=== PATIENT | female | born 1950 | race Caucasian/White ===

== ENCOUNTER → 2017-01-27 | Outpatient (CLI) | payer MEDICARE ==
--- NOTE | 2017-01-27 09:47 | REPMRS ---
Patient History The patient states she had a clinical breast exam in December 2016.Patient is postmenopausal. Family history of unknown cancer in brother at age 24. Digital Mammo Screening Bilat: January 27, 2017 - Exam #: [id number] Bilateral CC and MLO view(s) were taken. Technologist: Fernanda Covington, Technologist Prior study comparison: December 26, 2015, bilateral digital mammo screening bilat performed at [facility]. June 13, 2014, bilateral digital mammo screening bilat performed at [facility]. FINDINGS: The breast tissue is extremely dense which could obscure a lesion on mammography. There is no evidence of cancer on this mammogram. No significant changes when compared with prior studies. ASSESSMENT: BI-RADS/ACR category 2 mammogram. Benign finding(s). Recommendation Routine screening mammogram of both breasts in 1 year (for women over age 40). This mammogram was interpreted with the aid of an FDA-approved computer-aided dectection system. Electronically Signed By: Heath Hickey MD 01/27/17 0947
== END ==
LOC: M RAD 08:15
PROVIDERS: ATTEND Nurse Practitioner Women's Health
DX: Z12.31 Encounter for screening mammogram for malignant neoplasm of breast (principal)

== ENCOUNTER → 2018-01-30 | Outpatient (CLI) | payer MEDICARE | LOC: M RAD 10:08 | DX: Z12.31 Encounter for screening mammogram for malignant neoplasm of breast (principal) | CPT/HCPCS: 77067 ==

== ENCOUNTER → 2018-06-07 | Outpatient (REF) | payer MEDICARE ==
[2018-06-13 00:07] LABS: GAD-65 AUTOANTIBODY <5.0 U/mL (0.0-5.0)
== END ==
LOC: M LAB REF 15:45
DX: E11.319 Type 2 diabetes mellitus with unspecified diabetic retinopathy without macular edema (principal)
CPT/HCPCS: 83519

== ENCOUNTER → 2019-02-05 | Outpatient (CLI) | payer MEDICARE ==
--- NOTE | 2019-02-05 09:36 | REPMRS ---
Patient History The patient states she had a clinical breast exam in January 2019.Family history of unknown cancer at age 24 in brother. 3D TOMOSYNTHESIS WAS PERFORMED. The Elias Ochoa lifetime risk for breast cancer is 5.2%. Digital Mammo Screening Bilat: February 05, 2019 - Exam #: [id number] Bilateral CC and MLO view(s) were taken. Technologist: Fernanda Covington, Technologist Prior study comparison: January 30, 2018, bilateral digital mammo screening bilat performed at [facility]. January 27, 2017, bilateral digital mammo screening bilat performed at [facility]. FINDINGS: The breast tissue is heterogeneously dense. This may lower the sensitivity of mammography. There has been no change in the appearance of the mammogram from the prior studies. There is a moderate amount of residual fibroglandular tissue which is fairly symmetric. There is no interval development of dominant mass, areas of architectural distortion, or clustered microcalcification typical of malignancy. Assessment: BI-RADS/ACR category 1 mammogram. Negative Mammogram. Recommendation Routine screening mammogram in 1 year (for women over age 40). This mammogram was interpreted with the aid of an FDA-approved computer-aided dectection system. Electronically Signed By: Heath Hickey MD 02/05/19 0961
== END ==
LOC: M RAD 08:05
PROVIDERS: ATTEND Nurse Practitioner Women's Health
DX: Z12.31 Encounter for screening mammogram for malignant neoplasm of breast (principal)

== ENCOUNTER → 2020-02-13 | Outpatient (CLI) | payer MEDICARE ==
--- NOTE | 2020-02-13 09:56 | REPMRS ---
Patient History The patient states she has not had a clinical breast exam in over a year. Patient is postmenopausal. Family history of unknown cancer at age 24 in brother. 3D TOMOSYNTHESIS WAS PERFORMED. [facility] lifetime risk for breast cancer is 4.9%. [place] [facility] Digital Woman Screen Mammo: February 13, 2020 - Exam #: [id number] Bilateral CC and MLO view(s) were taken. Technologist: Oksana Martinez, Technologist Prior study comparison: February 05, 2019, bilateral digital mammo screening bilat, performed at [facility]. January 30, 2018, bilateral digital mammo screening bilat, performed at [facility]. FINDINGS: The breast tissue is heterogeneously dense. This may lower the sensitivity of mammography. There has been no change in the appearance of the mammogram from the prior studies. There is a moderate amount of residual fibroglandular tissue which is fairly symmetric. There is no interval development of dominant mass, areas of architectural distortion, or clustered microcalcification typical of malignancy. Assessment: BI-RADS/ACR category 1 mammogram. Negative Mammogram. Recommendation Routine screening mammogram in 1 year (for women over age 40). This mammogram was interpreted with the aid of an FDA-approved computer-aided dectection system. Electronically Signed By: Heath Hickey MD 02/13/20 0933
== END ==
LOC: M WHC 07:32
PROVIDERS: ATTEND Physician Assistant Medical
DX: Z12.31 Encounter for screening mammogram for malignant neoplasm of breast (principal); Z78.0 Asymptomatic menopausal state; Z80.9 Family history of malignant neoplasm, unspecified

== ENCOUNTER → 2021-05-14 | Outpatient (REF) | payer MEDICARE ==
[~2021-05-14] MED LIST: AZEL0.055 NARES; INSULANT SC; LISI20TA35 PO; MELA10CA PO; NOVOINJ3 SC; PRAV40TA2 PO
[2021-05-14 21:01] LABS: H PYLORI QUALITATIVE IgG NEGATIVE (NEGATIVE)
== END ==
LOC: M LAB REF 16:34
PROVIDERS: ATTEND Nurse Practitioner Adult Health
DX: R10.9 Unspecified abdominal pain (principal)

== ENCOUNTER 2021-05-16 11:28 | Inpatient (IN) | payer MEDICARE ==
[~2021-05-16] VITALS: Ht 165.1 cm; Wt 68.5 kg
[2021-05-16] MEDS ORDERED: NS 1,000 ML IV ONE ×2 (12:30→15:05)
[2021-05-16] MEDS ORDERED: MORPHINE 2 MG/ML 1ML VIAL (J2270) IV PRN (12:30)
[2021-05-16] MEDS ORDERED: ONDANSETRON 4MG/2ML VIAL IV ONE (12:30)
--- NOTE | 2021-05-16 12:54 | REP ---
INDICATION: pancreatitis COMPARISON: None. TECHNIQUE: Portable AP view of the chest FINDINGS: The mediastinum and cardiac silhouette are within normal limits for portable technique. The lung teague are clear without acute consolidation, effusion, or pneumothorax. Skeletal structures are intact. IMPRESSION: No acute cardiopulmonary process appreciated. <Electronically signed by Chris Bai > 05/16/21 [id number]
[2021-05-16 13:09] LABS: BASO % 0.5 % (0.0-1.0); EOS # 0.5 10^3/uL (0.0-0.5); EOS % 6.6 % (0.0-3.0); HEMATOCRIT 33.9 % (36.0-47.0); HEMOGLOBIN 11.5 g/dl (12.0-15.5); LYMPH # 2.3 10^3/uL (1.5-5.0); MEAN CORPUSCULAR HEMOGLOBIN 30.7 pg (27.0-33.0); MEAN CORPUSCULAR HGB CONC 33.9 g/dl (32.0-36.5); MEAN CORPUSCULAR VOLUME 90.4 fl (80.0-96.0); MONO # 0.5 10^3/uL (0.0-0.8); MONO % 6.7 % (2.0-8.0); NEUTROPHILS # 4.5 10^3/uL (1.5-8.5); NEUTROPHILS % 56.9 % (36.0-66.0); PLATELET COUNT, AUTOMATED 310 10^3/uL (150-450); RED BLOOD COUNT 3.75 10^6/uL (4.00-5.40); WHITE BLOOD COUNT 7.9 10^3/uL (4.0-10.0)
[2021-05-16] MEDS ORDERED: INSULANT SC (13:13)
[2021-05-16] MEDS ORDERED: LISI20TA35 PO (13:13)
[2021-05-16] MEDS ORDERED: MELA10CA PO (13:13)
[2021-05-16] MEDS ORDERED: PRAV40TA2 PO (13:13)
[2021-05-16] MEDS ORDERED: NOVOINJ3 SC (13:13)
[2021-05-16] MEDS ORDERED: AZEL0.055 NARES (13:13)
[2021-05-16 13:22] LABS: INR 0.9; PROTHROMBIN TIME 12.5 SECONDS (12.7-14.5)
[2021-05-16 13:23] LABS: PARTIAL THROMBOPLASTIN TIME 26.3 SECONDS (25.9-37.0)
[2021-05-16 13:28] LABS: CHOLESTEROL LEVEL 154 MG/DL (<200); CHOLESTEROL RISK RATIO 2.444 (<5); CK-MB VALUE MASS 1.6 NG/ML (<3.6); CPK CREATINE PHOSPHOKINASE 105 U/L (26-192); HDL CHOLESTEROL 63 MG/DL (>40); LDL CHOLESTEROL 65 MG/DL (<100); MB/CK RELATIVE INDEX 1.52 (< OR =4); NON-HDL-C 91 MG/DL; TRIGLYCERIDES LEVEL 131 MG/DL (<150); TROPONIN I < 0.02 NG/ML (< 0.10)
[2021-05-16 13:33] LABS: RSV AMPLIFICATION NEGATIVE (NEGATIVE)
[2021-05-16 13:40] LABS: ALBUMIN 3.6 GM/DL (3.2-5.2); ALT/SGPT 23 U/L (12-78); BILIRUBIN,DIRECT < 0.1 MG/DL (0.0-0.2); BILIRUBIN,TOTAL 0.2 MG/DL (0.2-1.0); BLOOD UREA NITROGEN 16 MG/DL (7-18); CALCIUM LEVEL 8.9 MG/DL (8.8-10.2); CARBON DIOXIDE LEVEL 28 MEQ/L (21-32); CHLORIDE LEVEL 104 MEQ/L (98-107); CREATININE FOR GFR 0.92 MG/DL (0.55-1.30); GLOMERULAR FILTRATION RATE > 60.0 (>39); GLUCOSE, FASTING 259 MG/DL (70-100); LIPASE 11122 U/L (73-393); POTASSIUM SERUM 3.9 MEQ/L (3.5-5.1); SODIUM LEVEL 136 MEQ/L (136-145); TOTAL PROTEIN 7.4 GM/DL (6.4-8.2)
[2021-05-16] MEDS ORDERED: ISOVUE-370 76% 100ML VIAL As Ordered ONE (13:49)
--- NOTE | 2021-05-16 14:14 | REP ---
INDICATION: elevated lipase. COMPARISON: None TECHNIQUE: Axial contrast-enhanced images from the lung bases to the pubic symphysis using 100 cc Isovue 370 intravenous contrast material. Coronal and sagittal reformations obtained. This CT examination was performed using the following dose reduction techniques: Automated exposure control, adjustment of mA and/or kv according to the patient's size, and the use of iterative reconstruction technique. FINDINGS: Lung bases include 3 mm noncalcified nodules in the periphery of the visualized bilateral lower lobes. Liver, spleen, pancreas, gallbladder, bilateral adrenal glands and kidneys are normal. Specifically, no peripancreatic inflammatory stranding or fluid is identified. The enteric system including stomach, small, and large bowel appears normal. No evidence for obstruction or acute inflammatory process. Normal terminal ileum and cecum are identified in the right lower quadrant. Sigmoid diverticulosis noted without acute diverticulitis. Pelvis demonstrates normal bladder and evidence for prior hysterectomy. No ascites. No free air. No intraperitoneal or retroperitoneal adenopathy. Abdominal aorta and vasculature appear normal. Musculoskeletal structures are intact and without acute osseous abnormality. IMPRESSION: 1. No acute abdominopelvic pathology appreciated. 2. Nonacute findings as described above including diverticulosis. Normal appearance of the pancreas and peripancreatic fat planes. 3. Few scattered noncalcified nodules at the lung bases. Consider 12 month follow-up examination for high risk patients. <Electronically signed by Chris Bai > 05/16/21 [id number]
[2021-05-16 14:30] LABS: AMYLASE 473 U/L (25-115)
--- NOTE | 2021-05-16 14:40 | REP ---
INDICATION: elevated lipase COMPARISON: None. TECHNIQUE: Real time farnsworth scale ultrasound examination using curved array transducer. FINDINGS: Liver is normal in contour, size, and echogenicity without focal hepatic lesions identified. Pancreas is incompletely evaluated due to interposed bowel gas. The gallbladder is normal and without gallstones, wall thickening, or pericholecystic fluid. No biliary ductal dilatation is appreciated and the common bile duct measures 7.7 mm diameter. Right kidney is normal in reniform shape without hydronephrosis and measures 12.0 x 5.4 x 4.8 cm. No ascites in the visualized right upper quadrant. IMPRESSION: Normal limited right upper quadrant ultrasound <Electronically signed by Chris Bai > 05/16/21 [id number]
[2021-05-16] MEDS ORDERED: GLUCOSE 4GM CHEW TABLET PO PRN (15:15)
[2021-05-16] MEDS ORDERED: GLUCAGON INJ 1MG VIAL SC PRN (15:15)
[2021-05-16] MEDS ORDERED: DEXTROSE 50% 50 ML SYRINGE IV PRN (15:15)
[2021-05-16] MEDS ORDERED: NICOTINE 14 MG/24 HR TRANSDERMAL TD ONE (15:25)
[2021-05-16] MEDS ORDERED: HOME MED LIST COMPLETE! XX SCH (15:45)
--- NOTE | 2021-05-16 16:36 | HPEPDOC ---
[facility] Medical History & Physical Date of Admission May 16, 2021 Date of Service: May 16, 2021 Attending Physician: GALO PARISI MD History and Physical cc: Abdominal pain HISTORY OF PRESENT ILLNESS: This is a 70-year-old elderly female who presents to [facility] ER which is chief complaint of abdominal pain. Patient states that she has been experiencing midepigastric abdominal pain for 3 weeks now. The pain is localized at the navel area and is described as a " toothache" that is dull in nature. The pain is constant and is worsened with p.o. intake and alleviated by laying flat. With p.o. intake she reports severe pain about an hour after eating and she has since decreased p.o. intake. Patient initially attributed the pain to eating something that spoiled however when the pain did not let up she became more bloated. She states she bought [id number] Gaviscon, and antacid and tried taking that however that also did not relieve her pain. She finally decides to visit her primary care physician last who ran some lab tests and called her today to report that she had an elevated lipase in the and that she should report to the ER for further work-up and care. In the ER, a repeat lipase is greater than 11,000 as well as elevated amylase. Her imaging was unimpressive w ith an essentially normal gallbladder ultrasound and CT abdomen pelvis with IV contrast did not show any acute abdominal pelvic pathology and normal appearance of the pancreas and peripancreatic fat planes. REVIEW OF SYSTEMS: General: Denies fever, shaking chills, unintentional weight loss. HEENT: Denies changes in vision including blurry vision or double vision, or hearing loss nasal congestion or sore throat, denies any lumps and bumps in the neck region. Heart: Denies chest pain or chest pressure or discomfort, or palpitations, or lower extremity edema Pulm: Denies cough or sputum production or shortness of breath GI: Denies nausea vomiting diarrhea abdominal pain or bloody stools. Pain in the navel region that is constant dull and described as a toothache. Decreased p.o. intake due to pain. Psych: Denies sadness or loss of interest in doing things, no thoughts of self- harm or suicidal ideation PAST MEDICAL HISTORY: MICHELINE on CPAP, reports compliance DM2 Hypertension Hyperlipidemia Nicotine dependence SURGICAL HISTORY: R Shoulder surgery Carpal tunnel release Trigger finger release Hysterectomy Appendectomy SOCIAL HISTORY: Current active smoker of half pack per day now since age 25. Had quit for a period of nine years, and then restarted. Smokes about half a pack a day. Denies EtOH or illicit drug use. 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 Relevant family history noncontributory. PHYSICAL EXAM: VS: Please see below GENERAL: The patient is a well-developed, well-nourished in no apparent distress. AAOx3 NEURO: No focal neurological deficits HEENT: Head is normocephalic and atraumatic. Extraocular muscles are intact. Pupils are equal, round, and reactive to light and accommodation. Nares appears normal. Moist mucous membranes. PULM: Clear to auscultation bilaterally. No wheezing, rhonchi or rales appreciat ed. CARDIO: Normal S1, S2. no significant murmurs, gallops, rubs or clicks. No signs of peripheral edema ABDOMEN: Soft, and nondistended. Tender in the mid epigastric region. There is no guarding on palpation. Normal bowel sounds. No significant organomegaly appreciated. EXTREMITIES: No cyanosis, clubbing, rash, lesions. IMAGING: Chest radiograph impression no acute cardiopulmonary process appreciated Abdominal/pelvis CT with IV contrast impression: Sigmoid diverticulosis noted without acute diverticulitis. Liver, spleen, pancreas, gallbladder, bilateral adrenal glands and kidneys are normal. No peripancreatic inflammatory stranding or fluid is identified. No acute abdominal pelvic pathology appreciated. Few scattered noncalcified nodules at the lung bases. Recommend 12-month follow-up. Gallbladder ultrasound impression: Normal limited right upper quadrant ultrasound. Gallbladder is normal without gallstones or pericholecystic fluid. No biliary ductal dilatation appreciated and the common bile duct measures 7.7 mm diameter ASSESSMENT AND PLAN: This is a 70-year-old elderly female who presents to [facility] ER with chief complaint of abdominal pain x3 weeks which has progressively gotten worse. The pain is mostly pronounced after eating a meal and she presented to her PCP who ran some labs and told her that she had lipase in the 9000s and told her to report to the ER. In the ER her lipase and amylase were both elevated, although imaging with CT abdomen pelvis along with right upper quadrant/gallbladder ultrasound were unimpressive and the hospitalist team was called to admit the patient for further management of care. Acute pancreatitis Possibly from poorly controlled diabetes as her sugars were in the 260s on admission and will order for an A1c; less likely 2/2 EtOH as patient denies alcohol use. Her TG levels are also within normal limits. Other differentials could be dyspepsia versus PUD although latter is lower on differential. We will give her Carafate and Protonix and continue to monitor her symptoms closely Patient has significant amount of pain with elevated lipase amylase and will placed on n.p.o. diet and aggressively fluid resuscitate her. Tylenol and morphine as needed for pain control. Will order for LDH as well as other daily labs including CBC and BMP to complete the initial Lin criteria. We will monitor her repeat labs and recalculate [place] criteria 48 hours into remission. Also order for CRP trend HLD - c/w statin for now. Hypertension Will hold her home chlorthalidone. Will continue her lisinopril Her BP on admission is elevated we will continue to monitor closely and add antihypertensive as necessary DM2 with use of insulin Patient will be n.p.o. we will place her on fluids Will hold home Levemir and placed on place sliding scale while n.p.o. With FSBS every 6+ hypoglycemic protocol Tobacco dependence I have educated patient on smoking cessation. Will order for nicotine patch CT abdomen pelvis shows few scattered noncalcified nodules at lung bases. Patient will need to follow with outpatient with pulmonary for repeat imaging as necessary. MICHELINE compliant on CPAP Patient states that she uses CPAP to sleep at night and is compliant. She states that she does not think that she will sleep well with her CPAP at night during her hospital stay because of the noise. However if she were to be at the hospital for more than a day she says she will ask her to bring her CPAP machine in so she can use it. Last documented CPAP setting 7 cmH2O. DVT ppx: Heparin 5000 q8h GI ppx: protonix CODE STATUS: Full Vital Signs Vital Signs Date Time Temp Pulse Resp B/P (MAP) Pulse Ox O2 Delivery O2 Flow Rate FiO2 05/16/21 15:16 96.3 81 16 177/67 (103) 99 Room Air Laboratory Data Labs 24H Laboratory Tests 2 05/16/21 12:40: Immature Granulocyte % (Auto) 0.3, Neutrophils (%) (Auto) 56.9, Lymphocytes (%) (Auto) 29.0, Monocytes (%) (Auto) 6.7, Eosinophils (%) (Auto) 6.6H, Basophils (%) (Auto) 0.5, Neutrophils # (Auto) 4.5, Lymphocytes # (Auto) 2.3, Monocytes # (Auto) 0.5, Eosinophils # (Auto) 0.5, Basophils # (Auto) 0.0, Nucleated Red Blood Cells % (auto) 0.0, Prothrombin Time 12.5, Prothromb Time International Ratio 0.90, Activated Partial Thromboplast Time 26.3, Urine Color YELLOW, Urine Appearance HAZY, Urine pH 5.0, Urine Specific [place]iden 1.013, Urine Protein NEGATIVE, Urine Glucose (UA) 3+H, Urine Ketones NEGATIVE, Urine Blood 1+H, Urine Nitrite NEGATIVE, Urine Bilirubin NEGATIVE, Urine Urobilinogen 0.2, Urine Leukocyte Esterase TRACEH, Urine WBC (Auto) 1, Urine RBC (Auto) 3, Urine Hyaline Casts (Auto) 0, Urine Bacteria (Auto) NEGATIVE, Urine Squamous Epithelial Cells 3, Urine Sperm (Auto) , Anion Gap 4L, Glomerular Filtration Rate > 60.0, Calcium Level 8.9, Total Bilirubin 0.2, Direct Bilirubin < 0.1, Aspartate Amino Transf (AST/SGOT) 15, Alanine Aminotransferase (ALT/SGPT) 23, Alkaline Phosphatase 136H, Total Creatine Kinase 105, Creatine Kinase MB 1.6, Creatine Kinase MB Relative Index 1.52, Troponin I < 0.02, Total Protein 7.4, Albumin 3.6, Albumin/Globulin Ratio 0.9L, Triglycerides Level 131, Total Cholesterol 154, LDL Cholesterol 65, Non-HDL Cholesterol (LDL + VLDL) 91, Total HDL Cholesterol 63, Cholesterol/HDL Ratio 2.444, Amylase Level 473H, Lipase [id number] 05/16/21 12:44: Coronavirus (COVID-19)(PCR) NEGATIVE, Influenza Type A (RT-PCR) NEGATIVE, Influenza Type B (RT-PCR) NEGATIVE, Respiratory Syncytial Virus (PCR) NEGATIVE CBC/BMP Laboratory Tests 05/16/21 12:40 Microbiology Microbiology 05/16/21 Urine Culture, Received Pending Home Medications Scheduled Insulin Aspart (Novolog Flexpen) 100 Unit/1 Ml Insuln.pen, 1 DOSE SC AC PER SLIDING SCALE Insulin Glargine (Lantus) 100 Unit/1 Ml Vial, 20 UNITS SC QHS Lisinopril/Hydrochlorothiazide (Lisinopril-Hctz 20-12.5 mg Tab) 1 Each Tablet, 1 TAB PO DAILY Pravastatin Sodium (Pravastatin Sodium) 40 Mg Tablet, 40 MG PO QHS Scheduled PRN Azelastine HCl (Azelastine HCl) 0.15% [place].pump, 1 SPRAY NARES BID PRN for CONGESTION Melatonin (Melatonin) 10 Mg Capsule, 10 MG PO QHS PRN for SLEEP Allergies Coded Allergies: No Known Allergies (Unverified , 05/16/21) GME ATTESTATION GME ATTESTATION My faculty preceptor for this patient encounter was physically present during the encounter and was fully available. All aspects of the patient interview, examination, medical decision making process, and medical care plan development were reviewed and approved by the faculty preceptor. The faculty preceptor is aware and concurs with the plan as stated in the body of this note and will atte st to such by his/her cosignature. ATTENDING NOTE I, Galo Parisi, have independently examined this patient and performed my own physical exam, as well as reviewed the documentation and edited where necessary with the resident. For medical students we have performed the physical exam together and discussed medical decision making and I have verified the history. I have discussed in detail with the resident / student the findings and plan of treatment as documented by the resident / student and edited their note. I agree with their findings and treatment plan and have edited their documentation. I will continue to follow the patient during this hospital stay. Chief complaint: Presented with abdominal pain for 3 weeks History of present illness: Patient is a 70-year-old female with a PMHx of HTN, IDDM2, DLP, who presented to the emergency room with complaints of abdominal pain has been america oing for 3 weeks. Patient was seen and examined by her primary care provider on and a lipase level was checked at that time and noted to be elevated. Patient was subsequently advised to go to the ER for further evaluation. Patient reports that usually when she wakes up in the morning. She doesnt express any abdominal pain. However, after she eats breakfast within 1 hour, she begins experiencing aching abdominal pain that she describes as a 6/10. Patient reports that this is aggravated with food. She denies any associated nausea or vomiting. Denies any diarrhea or constipation. Reports her last bowel movement was this morning without any evidence of blood. Patient denies any urinary discomfort. Denies any fevers or chills. She denies any chest pain, shortness of breath, palpitations, cough. Past Medical History: HTN, IDDM2, DLP Past Surgical History: Hysterectomy Appendectomy Allergies: See below Medications: See below Family History: - Reviewed and noncontributory Social History: - Patient reports that she seldom drinks alcohol the last use was in March for celebration and she had wine - Denies recent travel or sick contacts Review of Systems: 10 point review of systems complete, all negative otherwise stated in HPI Physical exam: - Vitals: BP [157/65], HR [75], RR [18], Sat [98%RA], Temp [98.2F] - General: Lying in bed, Speaking in full sentences, AAOx3 - HEENT: NC, AT, PERRLA - CVS: RRR, +S1S2 - Lungs: Fair air entry bilaterally, No appreciable wheezing / rales / rhonchi - Abdomen: Soft, Non-distended, Non-tender, - Extremities: No lower extremity edema, No calf tenderness - Neuro: No focal motor or sensory deficit - Skin: No visible rashes Labs: See below Imaging: CXR 05/16: No acute cardiopulmonary process appreciated. CT abdomen / pelvis 05/16: 1. No acute abdominopelvic pathology appreciated. 2. Nonacute findings as described above including diverticulosis. Normal appearance of the pancreas and peripancreatic fat planes. 3. Few scattered noncalcified nodules at the lung bases. Consider 12 month follow-up examination for high risk patients. US gallbladder 05/16: Normal limited right upper quadrant ultrasound EKG: See below Assessment and Plan: Abdominal pain - likely 2/2 acute pancreatitis - etiology unclear, possibly 2/2 medications? - Clinically patient presented to the ER with abdominal pain intermittently for 3 weeks - Physical reveals epigastric tenderness - She remains hemodynamically stable without any fevers - Elevated lipase of 11,122; will check lactic acid - Patient denies any recent alcohol use - Triglyceride level noted to be normal - Imaging noted above - Medications reviewed; Will stop HCTZ - Will start aggressive IV fluid hydration, symptomatic control with Morphine and Zofran - Will keep patient NPO and advance diet when pain subsides Elevated alkaline phosphatase - Will check GGT HTN - Will stop HCTZ (re: Above) - Will c/w Lisinopril IDDM2 - Will check A1c - Will hold long acting insulin for now while NPO - Will start ISS DLP - c/w Pravastatin MICHELINE - c/w Home CPAP while inpatient Active smoker - Advised smoking cessation - Lung nodules on imaging (above) will need outpatient follow up for repeat imaging Insomnia - c/w Melatonin Gastrointestinal prophylaxis - Will start Protonix DVT prophylaxis - Will start Heparin Damon Hammer DO May 16, 2021 16:30 GALO PARISI MD May 16, 2021 16:55
[2021-05-16 17:08] LABS: CHOLESTEROL RISK RATIO 2.491 (<5)
[2021-05-16 17:10] LABS: ALBUMIN 3.4 GM/DL (3.2-5.2); ALT/SGPT 20 U/L (12-78); BILIRUBIN,DIRECT < 0.1 MG/DL (0.0-0.2); BILIRUBIN,TOTAL 0.3 MG/DL (0.2-1.0); C REACTIVE PROTEIN QUANTITATIV < 0.30 MG/DL (0.00-0.30); LDH LACTATE DEHYDROGENASE 159 U/L (84-246); TOTAL PROTEIN 6.6 GM/DL (6.4-8.2)
[2021-05-16] MEDS: HumaLOG INSULIN (NovoLOG) PER UNIT SC SCH ×2 (17:56→23:41)
[2021-05-16] MEDS: SUCRALFATE 1 GM TAB PO SCH ×2 (17:58→20:39)
[2021-05-16] MEDS: PANTOPRAZOLE 40MG TAB (PROTONIX) PO SCH (17:58)
[2021-05-16] MEDS: NS 1,000 ML IV SCH ×2 (19:02→20:11)
--- NOTE | 2021-05-16 19:36 | ECGEPIP ---
[facility] - ED Test Date: 2021-05-16 Pat Name: CLAYTON QUINTANILLA Department: Room: - Gender: Female Manager Voice: JUAN : 1950 Requested By: CÉSAR Gant Order Number: [id number] Reading MD: Cole Valentine Measurements Intervals [place] Rate: 73 P: 76 [place]: 200 QRS: -14 QRSD: 98 T: 75 QT: 384 QTc: 423 Interpretive Statements Normal sinus rhythm leftward axis Nonspecific ST T wave changes Delayed R wave progression No prior ECG for comparison Electronically Signed on 05-16-2021 19:36:07 EDT by Cole Valentine
[2021-05-16 20:20] VITALS: BP 150/68
[2021-05-16] MEDS: PRAVASTATIN 20 MG TAB PO SCH (20:39)
[2021-05-16] MEDS: HEPARIN SOD (PORCINE) 5000UNITS/ML 1ML VIAL/SYRINGE SQ SCH (20:39)
[2021-05-16 21:00] VITALS: O2SAT 96
[2021-05-16] MEDS ORDERED: PRAVASTATIN 20 MG TAB PO SCH (21:00)
[2021-05-16 22:00] VITALS: O2SAT 97
[2021-05-16 23:00] VITALS: O2SAT 97
[2021-05-16] MEDS: MORPHINE 2 MG/ML 1ML VIAL (J2270) IV PRN (23:45)
[2021-05-17] VITALS (11 sets, daily range): BP systolic 123–155; BP diastolic 54–77; O2SAT 94–99
[2021-05-17] MEDS: NS 1,000 ML IV SCH ×3 (01:05→11:32)
[2021-05-17] MEDS: ONDANSETRON 4MG/2ML VIAL IV PRN ×2 (02:45→10:18)
[2021-05-17] MEDS: MORPHINE 2 MG/ML 1ML VIAL (J2270) IV PRN ×2 (03:52→08:49)
[2021-05-17] MEDS: HumaLOG INSULIN (NovoLOG) PER UNIT SC SCH ×3 (05:54→17:57)
[2021-05-17] MEDS: HEPARIN SOD (PORCINE) 5000UNITS/ML 1ML VIAL/SYRINGE SQ SCH ×3 (05:55→22:00)
[2021-05-17 06:26] LABS: HEMATOCRIT 29.9 % (36.0-47.0); HEMOGLOBIN 10.4 g/dl (12.0-15.5); MEAN CORPUSCULAR HEMOGLOBIN 31.3 pg (27.0-33.0); MEAN CORPUSCULAR HGB CONC 34.8 g/dl (32.0-36.5); MEAN CORPUSCULAR VOLUME 90.1 fl (80.0-96.0); PLATELET COUNT, AUTOMATED 273 10^3/uL (150-450); RED BLOOD COUNT 3.32 10^6/uL (4.00-5.40); WHITE BLOOD COUNT 8.7 10^3/uL (4.0-10.0)
[2021-05-17 06:53] LABS: BLOOD UREA NITROGEN 9 MG/DL (7-18); CALCIUM LEVEL 7.2 MG/DL (8.8-10.2); CARBON DIOXIDE LEVEL 25 MEQ/L (21-32); CHLORIDE LEVEL 111 MEQ/L (98-107); CREATININE FOR GFR 0.58 MG/DL (0.55-1.30); GLOMERULAR FILTRATION RATE > 60.0 (>39); GLUCOSE, FASTING 135 MG/DL (70-100); POTASSIUM SERUM 4.3 MEQ/L (3.5-5.1); SODIUM LEVEL 140 MEQ/L (136-145)
[2021-05-17] MEDS: SUCRALFATE 1 GM TAB PO SCH ×3 (08:48→17:30)
[2021-05-17] MEDS: PANTOPRAZOLE 40MG TAB (PROTONIX) PO SCH (08:48)
--- NOTE | 2021-05-17 09:36 | IPNPDOC ---
Text Note Date of Service The patient was seen on 05/17/21. NOTE Subjective: Patient is a 70-year-old female with a PMHx of HTN, IDDM2, DLP, who presented to the ER with complaints of abdominal pain has been ongoing for 3 weeks. Patient was seen and examined by her primary care provider on and a lipase level was checked at that time and noted to be elevated. Patient was subsequently advised to go to the ER for further evaluation. . She was admitted to the hospital service for further evaluation and treatment of acute pancreatitis. Patient was seen and examined at the bedside. Patient reports that her abdominal pain has resolved this morning. However, she has not eaten anything denies any chest pain, shortness breath or palpitations reported some nausea overnight with single episode of vomiting. Denies any urinary discomfort. Objective: Vitals (See below) General: Lying in bed, appears comfortable, AAOx3 HEENT: NC, AT CVS: RRR, +S1S2 Lungs: Fair air entry b/l, no evidence of wheezing, rales or rhonchi Abdomen: Soft, abdomen, does not reveal any distention and there is no tenderness on exam Extremities: Lower extremities are without any edema Imaging: CXR 05/16: No acute cardiopulmonary process appreciated. CT abdomen / pelvis 05/16: 1. No acute abdominopelvic pathology appreciated. 2. Nonacute findings as described above including diverticulosis. Normal appearance of the pancreas and peripancreatic fat planes. 3. Few scattered noncalcified nodules at the lung bases. Consider 12 month foll ow-up examination for high risk patients. US gallbladder 05/16: Normal limited right upper quadrant ultrasound Assessment and plan: Abdominal pain - likely 2/2 acute pancreatitis - etiology unclear, possibly 2/2 medications (HCTZ) - Patient has reported no abdominal pain. This morning, however, she did have an episode of vomiting overnight - Physical is without any abdominal tenderness - Hemodynamically stable / Afebrile - Elevated lipase on admission - Patient denies any recent alcohol use / Triglyceride level noted to be normal - Imaging noted above - s/p HCTZ (possible etiology for acute pancreatitis) - c/w IV fluid hydration - will reduce rate, symptomatic control with Morphine and Zofran - Will keep patient NPO for now; will re-evaluate this afternoon Elevated alkaline phosphatase - Trending down - GGT normal HTN - Discontinued HCTZ (re: Above) - c/w Lisinopril IDDM2 - A1c 8.0% - Holding long acting insulin while NPO - c/w ISS DLP - c/w Pravastatin MICHELINE - c/w Home CPAP while inpatient; patient does not have a machine currently Active smoker - Advised smoking cessation - Lung nodules on imaging (above) will need outpatient follow up for repeat imaging Insomnia - c/w Melatonin Gastrointestinal prophylaxis - c/w Protonix DVT prophylaxis - c/w Heparin Disposition: - Pending clinical improvement VSMoncho, I+O VS, Moncho, I+O Laboratory Tests 05/16/21 12:40 05/17/21 06:03 Vital Signs Date Time Temp Pulse Resp B/P (MAP) Pulse Ox O2 Delivery O2 Flow Rate FiO2 05/17/21 08:49 18 99 Room Air 05/17/21 08:48 123/83 05/17/21 08:00 98.5 71 I&O- Last 24 Hours up to 6 AM 05/17/21 06:00 Intake Total 3260 ml Output Total 450 ml Balance 2810 ml BESSY PARISI MD May 17, 2021 09:36
[2021-05-17] MEDS: ACETAMINOPHEN TAB 650MG DOSE (2X325MG) PO PRN (14:45)
[2021-05-17] MEDS: METOCLOPRAMIDE INJ 10MG/2ML VIAL (J2765 PER 1) IV PRN (14:45)
[2021-05-17] MEDS: D5W/0.9% SODIUM CHLORIDE 1,000 ML IV SCH (18:13)
[2021-05-17] MEDS: PRAVASTATIN 20 MG TAB PO SCH (22:24)
[2021-05-18] MEDS: D5W/0.9% SODIUM CHLORIDE 1,000 ML IV SCH (03:51)
[2021-05-18 06:00] VITALS: BP 120/44
[2021-05-18] MEDS: HumaLOG INSULIN (NovoLOG) PER UNIT SC SCH ×4 (06:21→17:02)
[2021-05-18] MEDS: HEPARIN SOD (PORCINE) 5000UNITS/ML 1ML VIAL/SYRINGE SQ SCH ×3 (06:21→21:31)
[2021-05-18] MEDS: PANTOPRAZOLE 40MG TAB (PROTONIX) PO SCH (08:56)
[2021-05-18 09:00] VITALS: O2SAT 99
[2021-05-18 11:13] LABS: BASO % 0.6 % (0.0-1.0); EOS # 0.2 10^3/uL (0.0-0.5); EOS % 3.1 % (0.0-3.0); HEMATOCRIT 30.7 % (36.0-47.0); HEMOGLOBIN 10.6 g/dl (12.0-15.5); LYMPH # 1.7 10^3/uL (1.5-5.0); LYMPH % 23.3 % (24.0-44.0); MEAN CORPUSCULAR HEMOGLOBIN 30.9 pg (27.0-33.0); MEAN CORPUSCULAR HGB CONC 34.5 g/dl (32.0-36.5); MEAN CORPUSCULAR VOLUME 89.5 fl (80.0-96.0); MONO # 0.4 10^3/uL (0.0-0.8); MONO % 5.6 % (2.0-8.0); NEUTROPHILS # 4.8 10^3/uL (1.5-8.5); PLATELET COUNT, AUTOMATED 267 10^3/uL (150-450); RED BLOOD COUNT 3.43 10^6/uL (4.00-5.40); WHITE BLOOD COUNT 7.1 10^3/uL (4.0-10.0)
--- NOTE | 2021-05-18 11:23 | IPNPDOC ---
Text Note Date of Service The patient was seen on 05/18/21. NOTE Subjective: Patient is a 70-year-old female with a PMHx of HTN, IDDM2, DLP, who presented to the ER with complaints of abdominal pain has been ongoing for 3 weeks. Patient was seen and examined by her primary care provider on and a lipase level was checked at that time and noted to be elevated. Patient was subsequently advised to go to the ER for further evaluation. . She was admitted to the hospital service for further evaluation and treatment of acute pancreatitis. Patient was seen and examined at the bedside. Currently reports that her abdominal pain has resolved reported no nausea or vomiting overnight. Denies any chest pain, shortness of breath, palpitations. Denies any urinary discomfort. Has not had any bowel movements but has been passing gas. Objective: Vitals (See below) General: Patient sitting up in bed, appears to be comfortable without any acute distress. She is awake, alert, oriented 3 HEENT: Atraumatic and normocephalic CVS: +S1S2 Lungs: Air entry appears to be fair bilaterally without auscultated evidence of crackles, wheezing or rhonchi Abdomen: Soft, no significant tenderness noted. No distention Extremities: No edema Imaging: CXR 05/16: No acute cardiopulmonary process appreciated. CT abdomen / pelvis 05/16: 1. No acute abdominopelvic pathology appreciated. 2. Nonacute findings as described above including diverticulosis. Normal appearance of the pancreas and peripancreatic fat planes. 3. Few scattered noncalcified nodules at the lung bases. Consider 12 month follow-up examination for high risk patients. US gallbladder 05/16: Normal limited right upper quadrant ultrasound Assessment and plan: Abdominal pain - likely 2/2 acute pancreatitis - etiology unclear, possibly 2/2 medications (HCTZ) - Patient reports that she's not having any abdominal pain and has not experience any nausea or vomiting overnight - Physical does not reveal any abdominal tenderness - Hemodynamically stable / Afebrile - Elevated lipase on admission - repeated Luz today, currently pending - Patient denies any recent alcohol use / Triglyceride level noted to be normal - Imaging noted above - s/p HCTZ (possible etiology for acute pancreatitis) - c/w IV fluid hydration - will reduce rate, symptomatic control with Morphine and Zofran - Will advance diet to clears today and DC fluids Elevated alkaline phosphatase - Pending this morning - GGT normal HTN - Discontinued HCTZ (re: Above) - c/w Lisinopril IDDM2 - A1c 8.0% - Holding long acting insulin while NPO - c/w ISS DLP - c/w Pravastatin MICHELINE - c/w Home CPAP while inpatient; patient does not have a machine currently Active smoker - Advised smoking cessation - Lung nodules on imaging (above) will need outpatient follow up for repeat imaging Insomnia - c/w Melatonin Gastrointestinal prophylaxis - c/w Protonix DVT prophylaxis - c/w Heparin Disposition: - Pending clinical improvement VS,Fishbone, I+O VS, Fishbone, I+O Laboratory Tests 05/18/21 10:57 Vital Signs Date Time Temp Pulse Resp B/P (MAP) Pulse Ox O2 Delivery O2 Flow Rate FiO2 05/18/21 08:56 126/54 05/18/21 06:00 98.2 81 18 100 Room Air I&O- Last 24 Hours up to 6 AM 05/18/21 06:00 Intake Total 2900 ml Output Total 1375 ml Balance 1525 ml BESSY PARISI MD May 18, 2021 11:23
[2021-05-18 11:41] LABS: BLOOD UREA NITROGEN 6 MG/DL (7-18); CALCIUM LEVEL 8.1 MG/DL (8.8-10.2); CARBON DIOXIDE LEVEL 26 MEQ/L (21-32); CHLORIDE LEVEL 111 MEQ/L (98-107); CREATININE FOR GFR 0.79 MG/DL (0.55-1.30); GLOMERULAR FILTRATION RATE > 60.0 (>39); GLUCOSE, FASTING 252 MG/DL (70-100); POTASSIUM SERUM 3.6 MEQ/L (3.5-5.1); SODIUM LEVEL 141 MEQ/L (136-145)
[2021-05-18] MEDS: ACETAMINOPHEN TAB 650MG DOSE (2X325MG) PO PRN (12:53)
[2021-05-18] MEDS: METOCLOPRAMIDE INJ 10MG/2ML VIAL (J2765 PER 1) IV PRN (12:54)
[2021-05-18 14:00] VITALS: BP 132/88
[2021-05-18] MEDS ORDERED: DOCUSATE SODIUM 100MG CAPSULE PO PRN (19:30)
[2021-05-18] MEDS ORDERED: HumaLOG INSULIN (NovoLOG) PER UNIT SC SCH (21:00)
[2021-05-18] MEDS: PRAVASTATIN 20 MG TAB PO SCH (21:30)
[2021-05-18 22:00] VITALS: BP 145/66
[2021-05-18] MEDS ORDERED: SENNA 8.6 MG TAB (SENOKOT) PO PRN (23:25)
[2021-05-18] MEDS ORDERED: BISACODYL 10 MG SUPP PR ONE (23:25)
[2021-05-19 06:00] VITALS: BP 155/69
[2021-05-19] MEDS: HEPARIN SOD (PORCINE) 5000UNITS/ML 1ML VIAL/SYRINGE SQ SCH (06:13)
[2021-05-19 08:36] VITALS: BP 155/69
[2021-05-19] MEDS: PANTOPRAZOLE 40MG TAB (PROTONIX) PO SCH (08:36)
[2021-05-19] MEDS: HumaLOG INSULIN (NovoLOG) PER UNIT SC SCH (08:37)
[2021-05-19 08:43] LABS: BASO # 0.1 10^3/uL (0.0-0.2); BASO % 0.5 % (0.0-1.0); EOS # 0.2 10^3/uL (0.0-0.5); EOS % 1.5 % (0.0-3.0); HEMATOCRIT 31.4 % (36.0-47.0); HEMOGLOBIN 11.1 g/dl (12.0-15.5); LYMPH # 1.8 10^3/uL (1.5-5.0); LYMPH % 16.5 % (24.0-44.0); MEAN CORPUSCULAR HEMOGLOBIN 31.2 pg (27.0-33.0); MEAN CORPUSCULAR HGB CONC 35.4 g/dl (32.0-36.5); MEAN CORPUSCULAR VOLUME 88.2 fl (80.0-96.0); MONO # 0.6 10^3/uL (0.0-0.8); MONO % 5.5 % (2.0-8.0); NEUTROPHILS # 8.3 10^3/uL (1.5-8.5); NEUTROPHILS % 75.6 % (36.0-66.0); PLATELET COUNT, AUTOMATED 301 10^3/uL (150-450); RED BLOOD COUNT 3.56 10^6/uL (4.00-5.40); WHITE BLOOD COUNT 10.9 10^3/uL (4.0-10.0)
[2021-05-19 09:09] LABS: BLOOD UREA NITROGEN 5 MG/DL (7-18); CALCIUM LEVEL 8.8 MG/DL (8.8-10.2); CARBON DIOXIDE LEVEL 23 MEQ/L (21-32); CHLORIDE LEVEL 110 MEQ/L (98-107); CREATININE FOR GFR 0.66 MG/DL (0.55-1.30); GLOMERULAR FILTRATION RATE > 60.0 (>39); GLUCOSE, FASTING 211 MG/DL (70-100); POTASSIUM SERUM 4.1 MEQ/L (3.5-5.1); SODIUM LEVEL 140 MEQ/L (136-145)
[2021-05-19] MEDS ORDERED: ACET1TAB55 PO (10:48)
[2021-05-19] MEDS ORDERED: ZOFR4TAB16 PO (10:48)
[2021-05-19] MEDS ORDERED: PANT40TA29 PO (10:48)
[2021-05-19] MEDS ORDERED: LISI20TA33 PO (10:48)
[2021-05-19] MEDS ORDERED: DOCU100C16 PO (10:48)
[2021-05-19] MEDS ORDERED: OXYC-517 PO (10:51)
[2021-05-19] MEDS ORDERED: AMLO1TAB24 PO (10:52)
--- NOTE | 2021-05-19 10:53 | DS.PDOC ---
Discharge Summary General Date of Admission May 16, 2021 at 15:21 Date of Discharge 05/19/21 Discharge Summary PROCEDURES PERFORMED DURING STAY: [None]. ADMITTING DIAGNOSES: 1. . DISCHARGE DIAGNOSES: 1. . COMPLICATIONS/CHIEF COMPLAINT: Pancreatitis. HISTORY OF PRESENT ILLNESS: . HOSPITAL COURSE: . DISCHARGE MEDICATIONS: Please see below. ALLERGIES: Please see below. PHYSICAL EXAMINATION ON DISCHARGE: VITAL SIGNS: Please see below. GENERAL: HEENT: NECK: CARDIOVASCULAR EXAMINATION: RESPIRATORY EXAMINATION: ABDOMINAL EXAMINATION: EXTREMITIES: SKIN: NEUROLOGICAL EXAMINATION: PSYCHIATRIC EXAMINATION: LABORATORY DATA: Please see below. IMAGING: PROGNOSIS: ACTIVITY: [As tolerated]. DIET: DISCHARGE PLAN: DISPOSITION: . DISCHARGE INSTRUCTIONS: 1. . ITEMS TO FOLLOWUP ON ON OUTPATIENT: 1. . DISCHARGE CONDITION: [Stable]. TIME SPENT ON DISCHARGE: minutes. Vital Signs/I&Os Vital Signs Date Time Temp Pulse Resp B/P (MAP) Pulse Ox O2 Delivery O2 Flow Rate FiO2 05/19/21 08:36 155/69 05/19/21 06:00 98.9 87 18 100 Room Air I&O- Last 24 Hours up to 6 AM 05/19/21 06:00 Intake Total 2270 ml Output Total 1500 ml Balance 770 ml Laboratory Data Labs 24H Laboratory Tests 2 05/18/21 10:57: Immature Granulocyte % (Auto) 0.4, Neutrophils (%) (Auto) 67.0H, Lymphocytes (%) (Auto) 23.3L, Monocytes (%) (Auto) 5.6, Eosinophils (%) (Auto) 3.1H, Basophils (%) (Auto) 0.6, Neutrophils # (Auto) 4.8, Lymphocytes # (Auto) 1.7, Monocytes # (Auto) 0.4, Eosinophils # (Auto) 0.2, Basophils # (Auto) 0.0, Nucleated Red Blood Cells % (auto) 0.0, Anion Gap 4L, Glomerular Filtration Rate > 60.0, Calcium Level 8.1L, C-Reactive Protein, Quantitative 0.30, Lipase 3532H 05/18/21 11:24: Bedside Glucose (Misc Panel) 247H 05/18/21 16:21: Bedside Glucose (Misc Panel) 254H 05/18/21 20:51: Bedside Glucose (Misc Panel) 107 05/19/21 05:44: Bedside Glucose (Misc Panel) 170H 05/19/21 08:08: Immature Granulocyte % (Auto) 0.4, Neutrophils (%) (Auto) 75.6H, Lymphocytes (%) (Auto) 16.5L, Monocytes (%) (Auto) 5.5, Eosinophils (%) (Auto) 1.5, Basophils (%) (Auto) 0.5, Neutrophils # (Auto) 8.3, Lymphocytes # (Auto) 1.8, Monocytes # (Auto) 0.6, Eosinophils # (Auto) 0.2, Basophils # (Auto) 0.1, Nucleated Red Blood Cells % (auto) 0.0, Anion Gap 7L, Glomerular Filtration Rate > 60.0, Calcium Level 8.8, C-Reactive Protein, Quantitative 0.30 CBC/BMP Laboratory Tests 05/18/21 10:57 05/19/21 08:08 FSBS Laboratory Tests Test 05/18/21 11:24 05/18/21 16:21 05/18/21 20:51 05/19/21 05:44 Range/Units Bedside Glucose (Misc Panel) 247 254 107 170 83-110 MG/DL Microbiology Microbiology 05/16/21 Blood Culture - Preliminary, Resulted No Growth after 48 hours. All Specime... 05/16/21 Blood Culture - Preliminary, Resulted No Growth after 48 hours. All Specime... 05/16/21 Urine Culture - Final, Complete Escherichia Coli Enterococcus Faecalis Staphylococcus Epidermidis Discharge Medications Scheduled Amlodipine Besylate (Amlodipine Besylate) 5 Mg Tablet, 1 TAB PO DAILY Insulin Aspart (Novolog Flexpen) 100 Unit/1 Ml Insuln.pen, 1 DOSE SC AC, (Reported) PER SLIDING SCALE Insulin Glargine (Lantus) 100 Unit/1 Ml Vial, 20 UNITS SC QHS, (Reported) Lisinopril (Lisinopril) 20 Mg Tablet, 20 MG PO DAILY Pantoprazole Sodium (Pantoprazole Sodium) 40 Mg Tablet.dr, 40 MG PO DAILY Pravastatin Sodium (Pravastatin Sodium) 40 Mg Tablet, 40 MG PO QHS, (Reported) Scheduled PRN Acetaminophen (Acetaminophen) 325 Mg Tablet, 650 MG PO Q4H PRN for MILD PAIN or TEMP > 101 Azelastine HCl (Azelastine HCl) 0.15% [place].pump, 1 SPRAY NARES BID PRN for CONGESTION, (Reported) Docusate Sodium (Docusate Sodium) 100 Mg Capsule, 200 MG PO BIDP PRN for CONSTIPATION Melatonin (Melatonin) 10 Mg Capsule, 10 MG PO QHS PRN for SLEEP, (Reported) Ondansetron HCl (Zofran) 4 Mg Tablet, 1 TAB PO Q6-8HP PRN for nausea/vomiting Oxycodone HCl (Oxycodone HCl) 5 Mg Tablet, 1 TAB PO BIDP PRN for pain Allergies Coded Allergies: No Known Allergies (Unverified , 05/16/21) JORDAN MON MD May 19, 2021 10:53
== END 2021-05-19 11:55 | disposition home or self-care (01) | DRG 440 ==
LOC: M ED 11:28 → M ED INP 15:21 → M PCU 20:17 → M MS5PR 05-17 18:24
PROVIDERS: ADMIT Internal Medicine; ATTEND Family Medicine
DX: K85.90 Acute pancreatitis without necrosis or infection, unspecified (principal); E78.5 Hyperlipidemia, unspecified; I10 Essential (primary) hypertension; E11.9 Type 2 diabetes mellitus without complications; F17.200 Nicotine dependence, unspecified, uncomplicated; G47.33 Obstructive sleep apnea (adult) (pediatric); Z20.822 Contact with and (suspected) exposure to COVID-19; Z79.4 Long term (current) use of insulin; Z79.899 Other long term (current) drug therapy; G47.00 Insomnia, unspecified; R91.8 Other nonspecific abnormal finding of lung field

== ENCOUNTER → 2021-06-05 | Outpatient (CLI) | payer MEDICARE ==
[~2021-06-05] MED LIST changes: +ACET1TAB55 PO; +AMLO1TAB24 PO; +DOCU100C16 PO; +LISI20TA33 PO; +OXYC-517 PO; +PANT40TA29 PO; +ZOFR4TAB16 PO
--- NOTE | 2021-06-05 10:42 | REPMRS ---
Patient History The patient states she has not had a clinical breast exam in over a year. Family history of unknown cancer at age 24 in brother. Patient states no breast complaints today. Patient has signed MRS History Sheet. Digital Woman Screen Mammo: June 05, 2021 - Exam #: [id number] Bilateral CC and MLO view(s) were taken. Technologist: Juliette Hinson, Technologist Prior study comparison: February 13, 2020, bilateral digital woman screen mammo performed at [facility]. February 05, 2019, bilateral digital mammo screening bilat, performed at [facility]. FINDINGS: The breast tissue is heterogeneously dense. This may lower the sensitivity of mammography. Screening. Digital screening (2D) mammography was performed bilaterally in the CC and MLO projections. Additionally, breast tomosynthesis (3D mammography) was performed bilaterally in the CC and MLO projections. Todays exam was compared to the prior exam/exams. By history, the patient has no complaints of a palpable breast abnormality or other significant breast complaints. The Volpara volumetric breast density category is C, the breasts are heterogenously dense which may obscure small masses. The breasts are unchanged in size and shape. There are no christina-soft tissue densities or spiculated masses. There is no internal architectural distortion.Once again, stable benign appearing calcifications are seen. There are no suspicious christina-calcific clusters. Skin thickening or nipple retraction is not present. IMPRESSION: BI-RADS Category 2- Benign Findings. There is no evidence of malignant alteration of the breasts. Followup examination recommended in one year. The lifetime Tyrer-Cuzick score is 4.7% This mammogram was read with the assistance of [facility],an FDA approved computer aided detection system for mammography. Due to the density of the breasts, MRI/whole breast screening ultrasound is warranted. Negative x-ray reports should not delay surgical consultation if a dominant or clinically suspicious mass is present. Not all breast cancers can be identified by mammography. Therefore, we recommend that you continue to perform regular breast self-examination and physical examination and then promptly contact your physician of any concerns or changes. Adenosis and dense breasts may obscure an underlying neoplasm. No significant changes when compared with prior studies. Assessment: BI-RADS/ACR category 2 mammogram. Benign Findings. Recommendation Routine screening mammogram of both breasts in 1 year. Electronically Signed By: Marshall Felix MD 06/05/21 [id number]
== END ==
LOC: M WHC 07:23
PROVIDERS: ATTEND Nurse Practitioner Adult Health
DX: Z12.31 Encounter for screening mammogram for malignant neoplasm of breast (principal); R92.2 Inconclusive mammogram

== ENCOUNTER → 2021-07-15 | Outpatient (REF) | payer MEDICARE ==
[2021-07-16 08:11] LABS: PERCENT SATURATION 24.5 % (13.2-45.0)
== END ==
LOC: M LAB REF 16:09
PROVIDERS: ATTEND Internal Medicine
DX: R10.13 Epigastric pain (principal); R63.4 Abnormal weight loss

== ENCOUNTER → 2021-09-02 | Outpatient (REF) | payer MEDICARE ==
[2021-09-04 07:07] LABS: IgG SERUM (part of Subclasses) 1056 mg/dL (586-1602); IgG Subclass 1 529 mg/dL (248-810); IgG Subclass 2 298 mg/dL (130-555); IgG Subclass 3 62 mg/dL (15-102); IgG Subclass 4 55 mg/dL (2-96)
== END ==
LOC: M LAB REF 12:13
PROVIDERS: ATTEND Internal Medicine
DX: K85.90 Acute pancreatitis without necrosis or infection, unspecified (principal); D48.7 Neoplasm of uncertain behavior of other specified sites

== ENCOUNTER → 2021-10-14 | Outpatient (CLI) | payer MEDICARE ==
[~2021-10-14] MED LIST changes: +ELIQ5TAB PO; +ENOX40IN3 SC; +ENOX60IN3; +FENT12DI12 TOP; +GABA-282; +LIDOCAINE 1% MDV 20ML VIAL As Ordered ONE; +MIDAZOLAM INJ 2MG/2ML VIAL (J2250 PER 1MG) As Ordered ONE; +NS 1,000 ML IV SCH; +ONDA-84 PO; +ONDANSETRON 4MG/2ML VIAL As Ordered ONE; +PROC10TA5 PO; +ceFAZolin 2 GM/D5W 50 ML IV BAG (J0690 PER 500MG) As Ordered ONE; +ceFAZolin SOD 2 GM in IV 1 EA IV ONE; +diphenhydrAMINE 50MG/ML VIAL (J1200) As Ordered ONE; +fentaNYL 100 MCG/2 ML INJECTION As Ordered ONE
[2021-10-14 16:45] VITALS: BP 143/65
== END ==
LOC: M IRPRO 11:41
PROVIDERS: ATTEND Radiology Diagnostic Radiology
DX: C25.9 Malignant neoplasm of pancreas, unspecified (principal); Z79.4 Long term (current) use of insulin; Z79.899 Other long term (current) drug therapy; Z88.5 Allergy status to narcotic agent
CPT/HCPCS: 36561; 99152; 99153; C1769; C1788; C1894; J0690; J1200; J1642; J1644; J2250; J2405; J3010

== ENCOUNTER 2021-11-10 13:15 | Emergency (ER) | payer MEDICARE ==
[~2021-11-10] VITALS: Ht 165.1 cm; Wt 52.6 kg
[~2021-11-10 13:15] MED LIST changes: -LIDOCAINE 1% MDV 20ML VIAL As Ordered ONE; +LOMO2.5T PO; -MIDAZOLAM INJ 2MG/2ML VIAL (J2250 PER 1MG) As Ordered ONE; -NS 1,000 ML IV SCH; -ONDANSETRON 4MG/2ML VIAL As Ordered ONE; -ceFAZolin 2 GM/D5W 50 ML IV BAG (J0690 PER 500MG) As Ordered ONE; -ceFAZolin SOD 2 GM in IV 1 EA IV ONE; -diphenhydrAMINE 50MG/ML VIAL (J1200) As Ordered ONE; -fentaNYL 100 MCG/2 ML INJECTION As Ordered ONE
[2021-11-10] MEDS ORDERED: CREO3600 (13:46)
[2021-11-10] MEDS ORDERED: ELIQ5TAB (13:46)
[2021-11-10] MEDS ORDERED: NS 1,000 ML IV ONE (14:20)
[2021-11-10 14:56] LABS: HEMATOCRIT 29.6 % (36.0-47.0); HEMOGLOBIN 9.9 g/dl (12.0-15.5); MEAN CORPUSCULAR HEMOGLOBIN 31.9 pg (27.0-33.0); MEAN CORPUSCULAR HGB CONC 33.4 g/dl (32.0-36.5); MEAN CORPUSCULAR VOLUME 95.5 fl (80.0-96.0); PLATELET COUNT, AUTOMATED 135 10^3/uL (150-450); WHITE BLOOD COUNT 3.1 10^3/uL (4.0-10.0)
[2021-11-10 15:24] LABS: ALBUMIN 2.6 GM/DL (3.2-5.2); ALT/SGPT 31 U/L (12-78); AMYLASE 30 U/L (25-115); BILIRUBIN,DIRECT 0.2 MG/DL (0.0-0.2); BILIRUBIN,TOTAL 0.5 MG/DL (0.2-1.0); BLOOD UREA NITROGEN 16 MG/DL (7-18); CALCIUM LEVEL 8.3 MG/DL (8.8-10.2); CARBON DIOXIDE LEVEL 25 MEQ/L (21-32); CHLORIDE LEVEL 97 MEQ/L (98-107); CREATININE FOR GFR 0.83 MG/DL (0.55-1.30); GLOMERULAR FILTRATION RATE > 60.0 (>39); GLUCOSE, FASTING 218 MG/DL (70-100); LIPASE 65 U/L (73-393); MAGNESIUM LEVEL 1.8 MG/DL (1.8-2.4); SODIUM LEVEL 131 MEQ/L (136-145); TOTAL PROTEIN 6.3 GM/DL (6.4-8.2)
[2021-11-10 15:26] LABS: BASOPHILS 1 % (0-1); EOSINOPHILS 5 % (0-3); LYMPHOCYTES 35 % (16-44); METAMYELOCYTES 2 % (0-0); MONOCYTES 4 % (0-5); NEUTROPHILS 52 % (28-66)
[2021-11-10 15:27] LABS: RSV AMPLIFICATION NEGATIVE (NEGATIVE)
[2021-11-10 15:27] LABS: PLATELET ESTIMATE DECREASED (NORMAL)
[2021-11-10] MEDS ORDERED: LIDOCAINE 2% 5ML JELLY UROJET TOP ONE (15:55)
[2021-11-10 17:47] VITALS: BP 133/82
== END 2021-11-10 17:53 | disposition home or self-care (01) ==
LOC: M ED 13:15
DX: R19.7 Diarrhea, unspecified (principal); R11.0 Nausea; C25.9 Malignant neoplasm of pancreas, unspecified; E10.9 Type 1 diabetes mellitus without complications; K21.9 Gastro-esophageal reflux disease without esophagitis; Z88.5 Allergy status to narcotic agent; Z79.899 Other long term (current) drug therapy; Z79.4 Long term (current) use of insulin; Z79.01 Long term (current) use of anticoagulants; F12.20 Cannabis dependence, uncomplicated; Z87.891 Personal history of nicotine dependence

== ENCOUNTER → 2021-11-11 | Outpatient (REF) | payer MEDICARE ==
[~2021-11-11] MED LIST changes: +CREO3600; +ELIQ5TAB
== END ==
LOC: M LAB REF 11:53
PROVIDERS: ATTEND Emergency Medicine
DX: R19.7 Diarrhea, unspecified (principal)

== ENCOUNTER 2021-12-25 11:48 | Emergency (ER) | payer MEDICARE ==
[~2021-12-25] VITALS: Ht 165.1 cm; Wt 50.0 kg
[~2021-12-25 11:48] MED LIST changes: -CREO3600; +CREO3600 PO; +DEXA2TA PO; -ELIQ5TAB; -GABA-282; +GABA-282 PO; +LEVA0.6322 INH; +METH2.5T48 PO; +VANC125C10 PO; +medical marijuana
[2021-12-25] MEDS ORDERED: NS 500 ML IV ONE (12:15)
[2021-12-25] MEDS ORDERED: DEXTROSE 50% 50 ML SYRINGE As Ordered ONE (12:29)
[2021-12-25] MEDS ORDERED: DEXTROSE 50% 50 ML SYRINGE IV STA (12:34)
[2021-12-25 13:14] LABS: HEMOGLOBIN 10.1 g/dl (12.0-15.5); MEAN CORPUSCULAR HEMOGLOBIN 32.5 pg (27.0-33.0); MEAN CORPUSCULAR HGB CONC 32.6 g/dl (32.0-36.5); MEAN CORPUSCULAR VOLUME 99.7 fl (80.0-96.0); PLATELET COUNT, AUTOMATED 241 10^3/uL (150-450); RED BLOOD COUNT 3.11 10^6/uL (4.00-5.40); WHITE BLOOD COUNT 10.6 10^3/uL (4.0-10.0)
[2021-12-25 13:26] LABS: OSMOLALITY SERUM 273 MOSM/KG (280-301)
[2021-12-25 13:46] LABS: ALBUMIN 2.9 GM/DL (3.2-5.2); ALT/SGPT 79 U/L (12-78); BILIRUBIN,DIRECT 0.4 MG/DL (0.0-0.2); BLOOD UREA NITROGEN 17 MG/DL (7-18); CALCIUM LEVEL 8.7 MG/DL (8.8-10.2); CARBON DIOXIDE LEVEL 27 MEQ/L (21-32); CHLORIDE LEVEL 101 MEQ/L (98-107); CREATININE FOR GFR 0.55 MG/DL (0.55-1.30); GLOMERULAR FILTRATION RATE > 60.0 (>39); GLUCOSE, FASTING 36 MG/DL (70-100); MAGNESIUM LEVEL 1.9 MG/DL (1.8-2.4); POTASSIUM SERUM 3.8 MEQ/L (3.5-5.1); SODIUM LEVEL 136 MEQ/L (136-145); THYROID STIMULATING HORMONE 0.525 uIU/ML (0.358-3.740); TOTAL PROTEIN 6.1 GM/DL (6.4-8.2)
[2021-12-25 13:49] LABS: RSV AMPLIFICATION NEGATIVE (NEGATIVE)
[2021-12-25 13:59] LABS: LYMPHOCYTES 8 % (16-44); MONOCYTES 1 % (0-5); NEUTROPHILS 91 % (28-66); PLATELET ESTIMATE NORMAL (NORMAL)
[2021-12-25 14:00] LABS: ANISOCYTOSIS 1+
[2021-12-25] MEDS ORDERED: CEFD300C PO (14:02)
[2021-12-25] MEDS ORDERED: DOXY-342 PO (14:02)
[2021-12-25 14:15] VITALS: BP 153/68
== END 2021-12-25 14:29 | disposition left against medical advice (07) ==
LOC: M ED 11:48
DX: J18.9 Pneumonia, unspecified organism (principal); E11.65 Type 2 diabetes mellitus with hyperglycemia; R79.9 Abnormal finding of blood chemistry, unspecified; C25.9 Malignant neoplasm of pancreas, unspecified; K21.9 Gastro-esophageal reflux disease without esophagitis; E78.5 Hyperlipidemia, unspecified; Z86.711 Personal history of pulmonary embolism; Z88.5 Allergy status to narcotic agent; Z79.01 Long term (current) use of anticoagulants; Z79.899 Other long term (current) drug therapy; Z79.4 Long term (current) use of insulin

== ENCOUNTER 2022-01-11 17:53 | Emergency (ER) | payer MEDICARE ==
[~2022-01-11] VITALS: Ht 162.6 cm; Wt 49.5 kg
[~2022-01-11 17:53] MED LIST changes: -GASTROGRAFIN SOLUTION 30ML (Q9963) As Ordered ONE; -ISOVUE-370 76% 100ML VIAL As Ordered ONE
[2022-01-11 18:53] LABS: BASO % 0.2 % (0.0-1.0); EOS % 0.1 % (0.0-3.0); HEMOGLOBIN 10.9 g/dl (12.0-15.5); LYMPH # 1.4 10^3/uL (1.5-5.0); LYMPH % 14.3 % (24.0-44.0); MEAN CORPUSCULAR HEMOGLOBIN 33.7 pg (27.0-33.0); MEAN CORPUSCULAR HGB CONC 34.1 g/dl (32.0-36.5); MEAN CORPUSCULAR VOLUME 99.1 fl (80.0-96.0); MONO # 0.5 10^3/uL (0.0-0.8); MONO % 5.1 % (2.0-8.0); NEUTROPHILS # 7.7 10^3/uL (1.5-8.5); NEUTROPHILS % 79.1 % (36.0-66.0); PLATELET COUNT, AUTOMATED 420 10^3/uL (150-450); RED BLOOD COUNT 3.23 10^6/uL (4.00-5.40); WHITE BLOOD COUNT 9.8 10^3/uL (4.0-10.0)
[2022-01-11 19:07] LABS: INR 1.02; PROTHROMBIN TIME 13.8 SECONDS (12.7-14.5)
[2022-01-11 19:24] LABS: CK-MB VALUE MASS 2.3 NG/ML (<3.6); MB/CK RELATIVE INDEX 3.83 (< OR =4)
[2022-01-11] MEDS ORDERED: PROTHROMBIN COMPLEX CONCEN IV ONE (19:25)
[2022-01-11] MEDS ORDERED: LABETALOL 100MG/20ML VIAL IV STA (19:25)
[2022-01-11] MEDS ORDERED: BOOSTRIX/ADACEL VACCINE (DIPHTH/PERTUSS/ACELL/TETANUS) 0.5ML SYR IM ONE (19:25)
[2022-01-11 19:31] LABS: ALBUMIN 3.3 GM/DL (3.2-5.2); ALT/SGPT 32 U/L (12-78); BILIRUBIN,DIRECT 0.1 MG/DL (0.0-0.2); BILIRUBIN,TOTAL 0.4 MG/DL (0.2-1.0); BLOOD UREA NITROGEN 17 MG/DL (7-18); CALCIUM LEVEL 9.5 MG/DL (8.8-10.2); CARBON DIOXIDE LEVEL 25 MEQ/L (21-32); CHLORIDE LEVEL 98 MEQ/L (98-107); CREATININE FOR GFR 0.74 MG/DL (0.55-1.30); FREE T4 1.36 NG/DL (0.76-1.46); GLOMERULAR FILTRATION RATE > 60.0 (>39); GLUCOSE, FASTING 293 MG/DL (70-100); POTASSIUM SERUM 4.6 MEQ/L (3.5-5.1); SODIUM LEVEL 132 MEQ/L (136-145); THYROID STIMULATING HORMONE 0.217 uIU/ML (0.358-3.740); TOTAL PROTEIN 6.6 GM/DL (6.4-8.2)
[2022-01-11 19:55] VITALS: BP 159/76
[2022-01-11 20:10] VITALS: BP 157/72
[2022-01-11 20:40] LABS: RSV AMPLIFICATION NEGATIVE (NEGATIVE)
== END 2022-01-11 20:29 | disposition short-term general hospital (02) ==
LOC: M ED 17:53
DX: S06.9X9A Unspecified intracranial injury with loss of consciousness of unspecified duration, initial encounter (principal); S02.40CA Maxillary fracture, right side, initial encounter for closed fracture; S02.19XA Other fracture of base of skull, initial encounter for closed fracture; S01.91XA Laceration without foreign body of unspecified part of head, initial encounter; R55 Syncope and collapse; W19.XXXA Unspecified fall, initial encounter; Y92.239 Unspecified place in hospital as the place of occurrence of the external cause; E11.9 Type 2 diabetes mellitus without complications; Z85.07 Personal history of malignant neoplasm of pancreas; K21.9 Gastro-esophageal reflux disease without esophagitis; Z86.711 Personal history of pulmonary embolism; Z79.01 Long term (current) use of anticoagulants; Z79.4 Long term (current) use of insulin; Z79.899 Other long term (current) drug therapy; Z88.5 Allergy status to narcotic agent
CPT/HCPCS: 12011; 70450; 71045; 72125; 80048; 80076; 82550; 82553; 84439; 84443; 84484; 85025; 85610; 85730; 87631; 90471; 90715; 93005; 93041; 94760; 96365; 96375; 99285; J7168

== ENCOUNTER → 2022-01-11 | Outpatient (CLI) | payer MEDICARE ==
[~2022-01-11] MED LIST changes: +CEFD300C PO; +DOXY-342 PO; +GASTROGRAFIN SOLUTION 30ML (Q9963) As Ordered ONE; +ISOVUE-370 76% 100ML VIAL As Ordered ONE
== END ==
LOC: M RAD 15:51
PROVIDERS: ATTEND Nurse Practitioner
DX: C25.9 Malignant neoplasm of pancreas, unspecified (principal)
CPT/HCPCS: 74177; Q9963; Q9967